=== PATIENT | male | born 1990 | race Caucasian/White ===

== ENCOUNTER 2019-07-17 19:23 | Emergency (ER) | payer SELFPAY ==
[2019-07-17 20:42] LABS: BLOOD UREA NITROGEN,BUN 18 mg/dL (7.0-18.0); CARBON DIOXIDE,CO2 22.3 mmol/L (21.0-32.0); CHLORIDE,CL 97 mmol/L (98-107); GLUCOSE RANDOM 98 mg/dL (74-106); POTASSIUM,K 4.6 mmol/L (3.5-5.1); SODIUM,NA 135 mmol/L (136-148)
[2019-07-17] MEDS ORDERED: Sodium Chloride 0.9% 1,000 ML IV ONE (21:26)
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
[2019-07-17] MEDS ORDERED: LORazepam 2 MG/ML SDV IVPUSH ONE (22:46)
[2019-07-17] MEDS ORDERED: LORazepam 1 MG Tab PO STA (22:49)
== END 2019-07-17 23:40 | disposition other institution (70) ==
LOC: MW.ED 19:23
DX: N17.9 Acute kidney failure, unspecified (principal); R40.4 Transient alteration of awareness; R74.8 Abnormal levels of other serum enzymes
CPT/HCPCS: 36415; 80053; 80307; 84484; 85027; 85610; 93005; 99285; A9270; J7030

== ENCOUNTER 2020-02-22 11:49 | Emergency (ER) | payer MEDICAID, OTHER ==
--- NOTE | 2020-02-22 13:38 | CR ---
HISTORY: Left lateral foot pain. TECHNIQUE: Three views of the left foot. COMPARISON: No prior. FINDINGS: No acute fracture or malalignment. Joint spaces are maintained. No radiopaque foreign body or soft tissue gas. IMPRESSION: No acute fracture or malalignment. Dictated by James Allan MD @ 02/22/2020 1:37:38 PM Dictated by: James Allan MD @ 02/22/2020 13:37:42 (Electronically Signed)
[2020-02-22] MEDS ORDERED: Ketorolac 60 MG/2 ML SDV IM ONE (13:53)
--- NOTE | 2020-02-22 13:53 | EDM.PDOC ---
ED HPI GENERAL MEDICAL PROBLEM - General Chief Complaint: Lower Extremity Injury/Pain Stated Complaint: INJURY TO LT FOOT Time Seen by Provider: 02/22/20 12:02 Source of Information: Reports: Patient History Limitations: Reports: No Limitations - History of Present Illness INITIAL COMMENTS - FREE TEXT/NARRATIVE: Presents reporting a foot impact injury 2 days ago. He states that he stepped off about a 2 foot step with his left foot. He may have misjudged the depth. He has persistent lateral foot pain with weightbearing. left foot Pain Score (Numeric/FACES): 8 - Related Data Allergies Allergy/AdvReac Type Severity Reaction Status Date / Time No Known Allergies Allergy Verified 02/22/20 12:41 Home Meds: Home Meds . [No Known Home Meds] 07/17/19 [History] Past Medical History - Past Health History Medical/Surgical History: Denies Medical/Surgical History HEENT History: Reports: None Cardiovascular History: Reports: None Respiratory History: Reports: None Gastrointestinal History: Reports: None Genitourinary History: Reports: None Musculoskeletal History: Reports: None Neurological History: Reports: None Psychiatric History: Reports: None Endocrine/Metabolic History: Reports: None Hematologic History: Reports: None Immunologic History: Reports: None Oncologic (Cancer) History: Reports: None Dermatologic History: Reports: None - Infectious Disease History Infectious Disease History: Reports: None - Past Surgical History Head Surgeries/Procedures: Reports: None HEENT Surgical History: Reports: None Cardiovascular Surgical History: Reports: None Respiratory Surgical History: Reports: None GI Surgical History: Reports: None Male Surgical History: Reports: None Endocrine Surgical History: Reports: None Neurological Surgical History: Reports: None Musculoskeletal Surgical History: Reports: None Oncologic Surgical History: Reports: None Dermatological Surgical History: Reports: None Social & Family History - Family History Family Medical History: Unobtainable - Tobacco Use Packs/Tins Daily: 0.5 - Recreational Drug Use Recreational Drug Use: No Review of Systems - Review of Systems Review Of Systems: Comprehensive ROS is negative, except as noted in HPI. ED EXAM, GENERAL - Physical Exam Exam: See Below Exam Limited By: No Limitations General Appearance: Alert, No Apparent Distress Ears: Normal External Exam Nose: Normal Inspection Throat/Mouth: Normal Inspection Head: Atraumatic, Normocephalic Neck: Normal Inspection Respiratory/Chest: No Respiratory Distress, Lungs Clear, Normal Breath Sounds Back Exam: Normal Inspection Extremities: Other (Left foot with mild swelling. Tenderness lateral foot. No erythema, ecchymosis, deformity or crepitus.) Course - Vital Signs Last Recorded V/S: Last Vital Signs Temp 36.4 C 02/22/20 12:38 Pulse 99 02/22/20 12:38 Resp 16 02/22/20 12:38 BP 128/89 02/22/20 12:38 Pulse Ox 96 02/22/20 12:38 Departure - Departure Time of Disposition: 13:55 Disposition: Home, Self-Care 01 Condition: Good Clinical Impression: Foot sprain Qualifiers: Encounter type: initial encounter Laterality: left Qualified Code(s): S93.602A - Unspecified sprain of left foot, initial encounter - Discharge Information Referrals: PCP,None [Primary Care Provider] - [facility] [Outside] [facility] [Outside] Additional Instructions: The following information is given to patients seen in the emergency department who are being discharged to home. This information is to outline your options for follow-up care. We provide all patients seen in our emergency department with a follow-up referral. The need for follow-up, as well as the timing and circumstances, are variable depending upon the specifics of your emergency department visit. If you don't have a primary care physician on staff, we will provide you with a referral. We always advise you to contact your personal physician following an emergency department visit to inform them of the circumstance of the visit and for follow-up with them and/or the need for any referrals to a consulting specialist. The emergency department will also refer you to a specialist when appropriate. This referral assures that you have the opportunity for follow-up care with a specialist. All of these measure are taken in an effort to provide you with optimal care, which includes your follow-up. Under all circumstances we always encourage you to contact your private physician who remains a resource for coordinating your care. When calling for follow-up care, please make the office aware that this follow-up is from your recent emergency room visit. If for any reason you are refused follow-up, please contact the [facility] Emergency Department at and asked to speak to the emergency department charge nurse. 1. César wrap, elevate left foot. 2. Ibuprofen 2-3 tabs every 6 to 8 hours as needed for pain 3. Follow up in primary care. Sepsis Event Note (ED) - Evaluation Sepsis Screening Result: No Definite Risk - Focused Exam Vital Signs: Vital Signs Temp Pulse Resp BP Pulse Ox 02/22/20 12:38 36.4 C 99 16 128/89 96
== END 2020-02-22 14:33 | disposition home or self-care (01) ==
LOC: MW.ED 11:49
DX: S93.602A Unspecified sprain of left foot, initial encounter (principal); F17.210 Nicotine dependence, cigarettes, uncomplicated; X50.9XXA Other and unspecified overexertion or strenuous movements or postures, initial encounter
CPT/HCPCS: 73630; 96372; 99283; J1885

== ENCOUNTER 2020-06-12 20:43 | Emergency (ER) | payer MEDICAID, OTHER ==
--- NOTE | 2020-06-12 21:21 | EDM.PDOC ---
ED HPI GENERAL MEDICAL PROBLEM - General Chief Complaint: ENT Problem Stated Complaint: BACK TOOTH PAIN Time Seen by Provider: 06/12/20 20:50 Source of Information: Reports: Patient History Limitations: Reports: No Limitations - History of Present Illness INITIAL COMMENTS - FREE TEXT/NARRATIVE: HISTORY AND PHYSICAL: History of present illness: Patient is a 30-year-old male who presents to the emergency room with complaints of right posterior molar dental pain. He states pain is an ongoing for 2 days but worse within the last 1 hour. Patient is tearful and feels like his "wisdom tooth is coming through". He has no difficulty with speech, swallowing or sore throat. Patient denies any fever, chills, headache, change in vision, syncope or near syncope. Denies any chest pain, back pain, shortness of breath or cough. Denies any abdominal pain, nausea, vomiting, diarrhea, constipation or dysuria. Has not noted any blood in urine or stool. Patient has been eating and drinking appropriately. Review of systems: As per history of present illness and below otherwise all systems reviewed and negative. Past medical history: As per history of present illness and as reviewed below otherwise noncontributory. Surgical history: As per history of present illness and as reviewed below otherwise noncontributory. Social history: See social history for further information Family history: As per history of present illness and as reviewed below otherwise noncontributory. Physical exam: General: Well developed and well nourished. Alert and orientated x 3. Nontoxic i n appearance and in no acute distress. Vital signs are stable and have been reviewed by me. Nursing notes were reviewed. HEENT: Atraumatic, normocephalic, pupils equal and reactive bilaterally, negat travis for conjunctival pallor or scleral icterus, mucous membranes moist, mild redness and tenderness to the posterior molar, no tenderness to the floor or roof of the mouth. TMs normal bilaterally, throat clear, neck supple, nontender, trachea midline. No drooling or trismus noted. No meningeal signs. No hot potato voice noted. Lungs: Clear to auscultation bilaterally. No wheezes, rales, or rhonchi. Chest nontender. Normal work of breathing, no accessory muscles used. Heart: S1S2, regular rate and rhythm without overt murmur, gallops, or rubs. No JVD. No peripheral edema Skin: Intact, warm, dry. No lesions or rashes noted. Hematologic: No petechiae or purpra. Mucosa appropriate color and normal nail bed color and refill. Extremities: Atraumatic, moves all extremities per self without difficulty or deficits, negative for cords or calf pain. Neurovascular unremarkable. Neuro: Awake, alert, oriented. Cranial nerves II through XII unremarkable. Cerebellum unremarkable. Motor and sensory unremarkable throughout. Exam nonfocal. Psychiatric: Mood and affect are appropriate. Normal thought process. Answering questions appropriately. Notes: *This patient was seen and evaluated during the 2019 SARS-CoV-2 novel coronavirus pandemic period. Community viral transmission is ongoing at time of this encounter and the emergency department is operating under pandemic response procedures. I do not see a clear abscess but will place him on antibiotics due to the tenderness along the gum line. I have talked with the patient about today's findings, in addition to providing specific details for plan of care. Reassessment at the time of disposition demonstrates that the patient is in no acute distress. The patient is stable for discharge, counseling was provided and we discussed in great detail signs and symptoms that would prompt them to return to the Emergency Department. Medication, follow up and supportive care measures were reviewed and discussed. Voices understanding and is agreeable to plan of care. Denies any further questions or concerns at this time. Diagnostics: None Therapeutics: Clindamycin, [place], dental balls Prescription: Clindamycin, Tylenol 3 Impression: Dental pain Plan: 1. Please take the antibiotic as prescribed. 2. Tylenol and/or ibuprofen as needed for pain management. "Tooth Balls" have been given to you; apply along the gumline every 2-3 hours as needed. Do not swallow these; external use only. 3. Follow-up with a dentist for definitive care. Return to the ED as needed and as discussed. Definitive disposition and diagnosis as appropriate pending reevaluation and review of above. R bottom teeth Pain Score (Numeric/FACES): 10 - Related Data Allergies Allergy/AdvReac Type Severity Reaction Status Date / Time amoxicillin Allergy Hives Verified 06/12/20 21:22 Home Meds: Home Meds Acetaminophen/Codeine [Tylenol with Codeine No.3 300MG/30MG] 1 tab PO Q4H PRN #20 tab 06/12/20 [Rx] Clindamycin HCl 300 mg PO TID 7 Days #21 capsule 06/12/20 [Rx] Past Medical History - Past Health History Medical/Surgical History: Denies Medical/Surgical History HEENT History: Reports: None Cardiovascular History: Reports: None Respiratory History: Reports: None Gastrointestinal History: Reports: None Genitourinary History: Reports: None Musculoskeletal History: Reports: None Neurological History: Reports: None Psychiatric History: Reports: None Endocrine/Metabolic History: Reports: None Hematologic History: Reports: None Immunologic History: Reports: None Oncologic (Cancer) History: Reports: None Dermatologic History: Reports: None - Infectious Disease History Infectious Disease History: Reports: None - Past Surgical History Head Surgeries/Procedures: Reports: None HEENT Surgical History: Reports: None Cardiovascular Surgical History: Reports: None Respiratory Surgical History: Reports: None GI Surgical History: Reports: None Male Surgical History: Reports: None Endocrine Surgical History: Reports: None Neurological Surgical History: Reports: None Musculoskeletal Surgical History: Reports: None Oncologic Surgical History: Reports: None Dermatological Surgical History: Reports: None Social & Family History - Family History Family Medical History: Unobtainable ED ROS ENT - Review of Systems Review Of Systems: Comprehensive ROS is negative, except as noted in HPI. ED EXAM, ENT - Physical Exam Exam: See Below (See dictation) Course - Vital Signs Last Recorded V/S: Last Vital Signs Temp 98.5 F 06/12/20 21:22 Pulse 95 06/12/20 21:22 Resp 18 06/12/20 21:22 BP 143/86 H 06/12/20 21:22 Pulse Ox 97 06/12/20 21:22 - Orders/Labs/Meds Meds: Medications Discontinued Medications Generic Name Dose Route Start Last Admin Trade Name Jn PRN Reason Stop Dose Admin Hydrocodone Bitart/Acetaminophen 1 tab 06/12/20 21:31 Acetaminophen/Hydrocodone 325-5 Mg Tab PO 06/12/20 21:32 ONETIME ONE Benzocaine 2 each 06/12/20 21:34 Benzocaine 20% Topical [place] Ud MUCMEM 06/12/20 21:35 ONETIME ONE Clindamycin HCl 300 mg 06/12/20 21:31 Clindamycin Hcl 150 Mg Cap PO 06/12/20 21:32 ONETIME ONE Lidocaine HCl 15 ml 06/12/20 21:34 Lidocaine 2% Viscous Solution 15 Ml Cup PO 06/12/20 21:35 ONETIME ONE Departure - Departure Time of Disposition: 21:35 Disposition: Home, Self-Care 01 Clinical Impression: Dentalgia - Discharge Information Prescriptions: Clindamycin HCl 300 mg PO TID 7 Days #21 capsule Acetaminophen/Codeine [Tylenol with Codeine No.3 300MG/30MG] 1 tab PO Q4H PRN #20 tab PRN Reason: Pain Instructions: Dental Abscess, [id number] Referrals: PCP,None [Primary Care Provider] - Forms: ED Department Discharge Additional Instructions: The following information is given to patients seen in the emergency department who are being discharged to home. This information is to outline your options for follow-up care. We provide all patients seen in our emergency department with a follow-up referral. The need for follow-up, as well as the timing and circumstances, are variable depending upon the specifics of your emergency department visit. If you don't have a primary care physician on staff, we will provide you with a referral. We always advise you to contact your personal physician following an emergency department visit to inform them of the circumstance of the visit and for follow-up with them and/or the need for any referrals to a consulting specialist. The emergency department will also refer you to a specialist when appropriate. This referral assures that you have the opportunity for follow-up care with a specialist. All of these measure are taken in an effort to provide you with optimal care, which includes your follow-up. Under all circumstances we always encourage you to contact your private physician who remains a resource for coordinating your care. When calling for follow-up care, please make the office aware that this follow-up is from your recent emergency room visit. If for any reason you are refused follow-up, please contact the [facility] Emergency Department at and asked to speak to the emergency department charge nurse. [facility] [address] [place] [id number] [address] Thank you for choosing the [facility] emergency department in [place] for your medical needs today. It was a pleasure caring for you. Today you were seen in the emergency department for toe pain. 1. Please take the antibiotic as prescribed. 2. Tylenol and/or ibuprofen as needed for pain management. "Tooth Balls" have be en given to you; apply along the gumline every 2-3 hours as needed. Do not swallow these; external use only. 3. Follow-up with a dentist for definitive care. Return to the ED as needed and as discussed. Sepsis Event Note (ED) - Focused Exam Vital Signs: Vital Signs Temp Pulse Resp BP Pulse Ox 06/12/20 21:22 98.5 F 95 18 143/86 H 97
[2020-06-12] MEDS ORDERED: Acetaminophen/HYDROcodone 325-5 MG Tab PO ONE (21:31)
[2020-06-12] MEDS ORDERED: Clindamycin HCl 150 MG Cap PO ONE (21:31)
[2020-06-12] MEDS ORDERED: Benzocaine 20% Topical Spray UD MUCMEM ONE (21:34)
[2020-06-12] MEDS ORDERED: Lidocaine 2% Viscous Solution 15 ML Cup PO ONE (21:34)
== END 2020-06-12 21:47 | disposition home or self-care (01) ==
LOC: MW.ED 20:43
DX: K08.89 Other specified disorders of teeth and supporting structures (principal); Z88.1 Allergy status to other antibiotic agents
CPT/HCPCS: 99282; A9270

== ENCOUNTER 2020-08-13 01:30 | Emergency (ER) | payer MEDICAID ==
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
[2020-08-13] MEDS ORDERED: Diphtheria,Pertussis(Acell),Tetanus Vaccine 0.5 ML Syringe IM ONE (01:38)
[2020-08-13] MEDS ORDERED: Acetaminophen 325 MG Tab PO ONE (01:38)
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
[2020-08-13] MEDS ORDERED: Octyl 2-Cyanoacrylate 1 APPLIC TUBE TOP ONE (03:45)
[2020-08-13] MEDS ORDERED: Bacitracin Oint 1 GM U/D Packet TOP ONE (07:42)
[2020-08-13] MEDS ORDERED: Bacitracin Oint 1 GM U/D Packet ONE (07:43)
== END 2020-08-13 07:55 | disposition home or self-care (01) ==
LOC: MW.ED 01:30
DX: S06.0X9A Concussion with loss of consciousness of unspecified duration, initial encounter (principal); S02.2XXA Fracture of nasal bones, initial encounter for closed fracture; S01.81XA Laceration without foreign body of other part of head, initial encounter; F10.129 Alcohol abuse with intoxication, unspecified; Z88.0 Allergy status to penicillin; Z23 Encounter for immunization; Y04.2XXA Assault by strike against or bumped into by another person, initial encounter
CPT/HCPCS: 12011; 70450; 70486; 72125; 90471; 90715; 99284; A9270; 99283

== ENCOUNTER 2021-05-10 17:31 | Emergency (ER) | payer MEDICAID ==
[2021-05-10 19:33] LABS: CORONAVIRUS COVID-19 NAA NEGATIVE (NEGATIVE); INFLUENZA A NAA NEGATIVE (NEGATIVE); INFLUENZA B NAA NEGATIVE (NEGATIVE)
[2021-05-10] MEDS ORDERED: Ondansetron 4 MG Tab.DIS PO ONE (20:54)
[2021-05-10] MEDS ORDERED: Ibuprofen 600 MG Tab PO ONE (20:54)
== END 2021-05-10 21:30 | disposition home or self-care (01) ==
LOC: MW.ED 17:31
DX: J10.1 Influenza due to other identified influenza virus with other respiratory manifestations (principal); Z88.0 Allergy status to penicillin; Z20.822 Contact with and (suspected) exposure to COVID-19
CPT/HCPCS: 0240U; 99283; A9270-GY

== ENCOUNTER 2022-08-03 12:06 | Emergency (ER) | payer SELFPAY ==
[2022-08-03] MEDS ORDERED: Sodium Chloride 0.9% 10 ML Syringe FLUSH PRN (12:21)
[2022-08-03] MEDS ORDERED: Sodium Chloride 0.9% 2.5 ML Syringe FLUSH PRN (12:21)
[2022-08-03] MEDS ORDERED: Sodium Chloride 0.9% 1,000 ML IV STA ×3 (12:22→14:19)
[2022-08-03] MEDS ORDERED: Ondansetron 4 MG/2 ML SDV IVPUSH STA (12:22)
[2022-08-03] MEDS ORDERED: LORazepam 2 MG/ML SDV IVPUSH STA ×3 (12:42→14:19)
[2022-08-03 12:48] LABS: BASOPHILS PERCENT AUTO 0.4 % (0.0-1.5); EOSINOPHILS ABSOLUTE AUTO 0.2 K/uL (0.0-0.7); HEMATOCRIT 44.5 % (38.0-50.0); HEMOGLOBIN 15.3 g/dL (13.0-17.0); LYMPHOCYTES ABSOLUTE AUTO 2.1 K/uL (0.6-2.4); LYMPHOCYTES PERCENT AUTO 46.9 % (16.0-40.0); MEAN CORPUSCULAR HEMOGLOBIN 31.1 pg (27.0-32.0); MEAN CORPUSCULAR HGB CONC 34.4 g/dL (31.0-37.0); MEAN CORPUSCULAR VOLUME 90.4 fL (80.0-98.0); MONOCYTES ABSOLUTE AUTO 0.3 K/uL (0.0-0.8); MONOCYTES PERCENT AUTO 7.2 % (0.0-15.0); NEUTROPHILS ABSOLUTE AUTO 1.8 K/uL (1.4-5.7); NEUTROPHILS PERCENT AUTO 40.5 % (48.0-80.0); RED BLOOD CELL COUNT 4.92 M/uL (4.50-5.90); WHITE BLOOD CELL COUNT,WBC 4.56 K/uL (4.0-11.0)
[2022-08-03 13:05] LABS: PLATELET COUNT,PLT 44 K/uL (150-400)
[2022-08-03 13:21] LABS: MAGNESIUM 1.7 mg/dL (1.8-2.4)
[2022-08-03] MEDS ORDERED: Magnesium Sulfate/Water 2 GM in Premix Bag 1 BAG IV STA (13:28)
[2022-08-03 13:30] LABS: A/G RATIO 0.7 (0.9-1.6); ALBUMIN 3.6 g/dL (3.4-5.0); BILIRUBIN TOTAL 3.5 mg/dL (0.2-1.0); CALCIUM 8.2 mg/dL (8.5-10.1); CARBON DIOXIDE,CO2 23.6 mmol/L (21.0-32.0); CREATININE 0.8 mg/dL (0.8-1.3); EST CRCL DRUG DOSING (CG) 156.98 mL/min; POTASSIUM,K 3.7 mmol/L (3.5-5.1); PROTEIN TOTAL,TP 8.6 g/dL (6.4-8.2)
[2022-08-03 13:36] LABS: CORONAVIRUS COVID-19 NAA NEGATIVE (NEGATIVE); INFLUENZA A NAA NEGATIVE (NEGATIVE); INFLUENZA B NAA NEGATIVE (NEGATIVE)
[2022-08-03 13:43] LABS: APPEARANCE,URINE CLEAR; BILIRUBIN,URINE NEGATIVE (NEGATIVE); COLOR,URINE YELLOW; GLUCOSE,URINE NEGATIVE (NEGATIVE); KETONES,URINE TRACE mg/dL (NEGATIVE); LEUKOCYTE ESTERASE,URINE NEGATIVE (NEGATIVE); NITRITE,URINE NEGATIVE (NEGATIVE); OCCULT BLOOD,URINE NEGATIVE (NEGATIVE); PH,URINE 6.5 (5.0-8.0); PROTEIN,URINE NEGATIVE (NEGATIVE)
[2022-08-03 13:52] LABS: AMPHETAMINES SCREEN, URINE NEGATIVE (CUTOFF=500); BARBITURATE SCREEN,URINE NEGATIVE (CUTOFF=200); BENZODIAZEPINES SCREEN,URINE NEGATIVE (CUTOFF=150); BUPRENORPHINE SCREEN,URINE NEGATIVE (CUTOFF=10); METHADONE SCREEN, URINE NEGATIVE (CUTOFF=200); METHAMPHETAMINES SCREEN, URINE NEGATIVE (CUTOFF=500); OXYCODONE SCREEN,URINE NEGATIVE (CUT0FF=100); PCP SCREEN,URINE NEGATIVE (CUTOFF=25); PROPOXYPHENE SCREEN,URINE NEGATIVE (CUTOFF=300); THC SCREEN,URINE 20 NG/ML NEGATIVE (CUTOFF=50)
[2022-08-03] MEDS ORDERED: Iopamidol 755 MG/ML 500 ML Multipack Bottle IVPUSH ONE (13:55)
[2022-08-03] MEDS ORDERED: Folic Acid 1 MG/0.2 ML UD Syringe IV STA ×2 (14:20→14:26)
[2022-08-03] MEDS ORDERED: Thiamine 100 MG in Sodium Chloride 0.9% 100 ML IV STA (14:20)
[2022-08-03 14:21] LABS: INR 1.05 (0.86-1.11)
[2022-08-03] MEDS ORDERED: Thiamine 200 MG/2 ML MDV IVPUSH ONE (14:30)
== END 2022-08-03 16:27 | disposition home or self-care (01) ==
LOC: MW.ED 12:06
DX: K70.9 Alcoholic liver disease, unspecified (principal); F10.920 Alcohol use, unspecified with intoxication, uncomplicated; D69.6 Thrombocytopenia, unspecified; E83.42 Hypomagnesemia; R74.8 Abnormal levels of other serum enzymes; Z88.0 Allergy status to penicillin; Z20.822 Contact with and (suspected) exposure to COVID-19; Y90.8 Blood alcohol level of 240 mg/100 ml or more
CPT/HCPCS: 0240U; 36415; 74177; 80053; 80305; 80307; 81003; 83605; 83690; 83735; 85025; 85610; 93005; 96361; 96365; 96375; 96376; 99284; J2060; J2405; J3411; J3475; J3490; J7030; Q9967; 93010; 99285

== ENCOUNTER 2022-08-06 08:38 | Emergency (ER) | payer SELFPAY | END 2022-08-06 10:48 | disposition home or self-care (01) | LOC: MW.ED 08:38 | DX: G47.00 Insomnia, unspecified (principal); Z88.0 Allergy status to penicillin | CPT/HCPCS: 99283 ==

== ENCOUNTER 2023-06-15 05:18 | Inpatient (IN) | payer MEDICAID ==
[2023-06-15] MEDS: Sodium Chloride 0.9% 2.5 ML Syringe FLUSH PRN (05:42)
[2023-06-15] MEDS: Sodium Chloride 0.9% 10 ML Syringe FLUSH PRN (05:43)
[2023-06-15 05:59] LABS: BASOPHILS PERCENT AUTO 1.3 % (0.0-1.0); HEMATOCRIT 37.9 % (42.0-52.0); IMMATURE GRAN ABSOLUTE AUTO 0.03 K/uL (0.00-0.05); IMMATURE GRAN PERCENT AUTO 0.4 % (0.0-0.4); LYMPHOCYTES ABSOLUTE AUTO 0.63 K/uL (1.00-4.80); MEAN CORPUSCULAR HEMOGLOBIN 34.1 pg (28.0-32.0); MEAN CORPUSCULAR HGB CONC 34.3 g/dL (32.0-36.0); MEAN CORPUSCULAR VOLUME 99.5 fL (83.0-99.0); MEAN PLATELET VOLUME 12.6 fL (9.4-12.4); MONOCYTES ABSOLUTE AUTO 0.62 K/uL (0.00-0.80); MONOCYTES PERCENT AUTO 7.9 % (0.0-8.0); NEUTROPHILS PERCENT AUTO 82.4 % (41.0-71.0); RED BLOOD CELL COUNT 3.81 M/uL (4.52-5.90); WHITE BLOOD CELL COUNT,WBC 7.88 K/uL (3.9-11.3)
[2023-06-15] MEDS: Dextrose 5%-Lactated Ringers 1,000 ML IV SCH ×2 (06:09→17:07)
[2023-06-15] MEDS: Thiamine 200 MG/2 ML MDV IVPUSH STA (06:09)
[2023-06-15 06:30] LABS: INR 1.27 (0.86-1.11); PTT,PARTIAL THROMBOPLSTIN TIME 24.4 SEC (23.9-30.7)
[2023-06-15 06:36] LABS: PLATELET COUNT,PLT 45 K/uL (150-400)
[2023-06-15 06:37] LABS: A/G RATIO 0.9 (0.9-1.6); ALBUMIN 4.1 g/dL (3.4-5.0); BILIRUBIN TOTAL 7.5 mg/dL (0.2-1.0); CALCIUM 9.7 mg/dL (8.5-10.1); CARBON DIOXIDE,CO2 17.9 mmol/L (21.0-32.0); CREATININE 1.1 mg/dL (0.8-1.3); EST CRCL DRUG DOSING (CG) 113.13 mL/min; POTASSIUM,K 3.7 mmol/L (3.5-5.1); PROTEIN TOTAL,TP 8.6 g/dL (6.4-8.2)
[2023-06-15 06:38] LABS: COLOR,URINE ORANGE; GLUCOSE,URINE NEGATIVE (NEGATIVE); KETONES,URINE 40 mg/dL (NEGATIVE); LEUKOCYTE ESTERASE,URINE NEGATIVE (NEGATIVE); NITRITE,URINE POSITIVE (NEGATIVE); OCCULT BLOOD,URINE SMALL (NEGATIVE); PROTEIN,URINE TRACE mg/dL (NEGATIVE)
[2023-06-15 06:41] LABS: APPEARANCE,URINE HAZY; BILIRUBIN,URINE MODERATE (NEGATIVE)
[2023-06-15 06:45] LABS: BACTERIA,URINE FEW (NEGATIVE); EPITHELIAL CELLS,URINE NOT SEEN (NONE-FEW); HYALINE CASTS,URINE 0-2 (0-2/LPF); MUCUS,URINE LIGHT (NONE-MOD); WBC,URINE 0-2 (0-5/HPF)
[2023-06-15 06:48] LABS: AMPHETAMINES SCREEN, URINE NEGATIVE (CUTOFF=500); BARBITURATE SCREEN,URINE NEGATIVE (CUTOFF=200); BENZODIAZEPINES SCREEN,URINE NEGATIVE (CUTOFF=150); BUPRENORPHINE SCREEN,URINE NEGATIVE (CUTOFF=10); METHADONE SCREEN, URINE NEGATIVE (CUTOFF=200); METHAMPHETAMINES SCREEN, URINE NEGATIVE (CUTOFF=500); OXYCODONE SCREEN,URINE NEGATIVE (CUT0FF=100); PCP SCREEN,URINE NEGATIVE (CUTOFF=25); THC SCREEN,URINE 20 NG/ML NEGATIVE (CUTOFF=50)
[2023-06-15] MEDS: Sodium Chloride 0.9% 1,000 ML IV ONE (07:21)
[2023-06-15] MEDS: PHENobarbitaL sodium 130 MG in Sodium Chloride 0.9% 100 ML IV ONE (07:26)
[2023-06-15] MEDS: Lactulose Soln 10 GM/15 ML 15 ML UD Cup PO ONE (08:40)
[2023-06-15] MEDS: Iopamidol 755 MG/ML 500 ML Multipack Bottle IVPUSH ONE (08:59)
[2023-06-15] MEDS ORDERED: Thiamine 100 MG in Sodium Chloride 0.9% 100 ML IV SCH (09:00)
[2023-06-15] MEDS: Thiamine 400 MG in Sodium Chloride 0.9% 250 ML IV STA (11:04)
[2023-06-15] MEDS ORDERED: Sodium Chloride 0.9% 2.5 ML Syringe FLUSH PRN (12:51)
[2023-06-15] MEDS ORDERED: Sodium Chloride 0.9% 10 ML Syringe FLUSH PRN (12:51)
[2023-06-15] MEDS: Pantoprazole 40 MG in Sodium Chloride 0.9% 10 ML IVPUSH ONE (13:11)
[2023-06-15] MEDS: LORazepam 2 MG/ML SDV IV PRN (13:12)
[2023-06-15] MEDS: Nicotine 14 MG/24 Hr Patch TRDERM SCH (13:59)
[2023-06-15] MEDS: Thiamine 500 MG in Sodium Chloride 0.9% 100 ML IV SCH (17:07)
[2023-06-15] MEDS: Lactulose Soln 10 GM/15 ML 15 ML UD Cup PO SCH (20:03)
[2023-06-15] MEDS: Folic Acid 1 MG Tab PO SCH (20:03)
[2023-06-15] MEDS ORDERED: Acetaminophen 325 MG Tab PO PRN (20:39)
[2023-06-15] MEDS: Acetaminophen 325 MG Tab PO PRN (21:04)
[2023-06-15] MEDS: traMADol 50 MG Tab PO ONE (22:58)
[2023-06-15] MEDS ORDERED: traMADol 50 MG Tab PO PRN (23:05)
[2023-06-15] MEDS: traMADol 50 MG Tab PO SCH (23:09)
[2023-06-16 06:16] LABS: BASOPHILS ABSOLUTE AUTO 0.05 K/uL (0.00-0.20); BASOPHILS PERCENT AUTO 1.3 % (0.0-1.0); EOSINOPHILS ABSOLUTE AUTO 0.12 K/uL (0.00-0.45); EOSINOPHILS PERCENT AUTO 3.2 % (0.0-6.0); HEMATOCRIT 33.6 % (42.0-52.0); HEMOGLOBIN 11.9 g/dL (14.0-18.0); LYMPHOCYTES ABSOLUTE AUTO 1.23 K/uL (1.00-4.80); LYMPHOCYTES PERCENT AUTO 32.5 % (24.0-44.0); MEAN CORPUSCULAR HEMOGLOBIN 34.5 pg (28.0-32.0); MEAN CORPUSCULAR HGB CONC 35.4 g/dL (32.0-36.0); MEAN CORPUSCULAR VOLUME 97.4 fL (83.0-99.0); MEAN PLATELET VOLUME 12.4 fL (9.4-12.4); MONOCYTES PERCENT AUTO 7.9 % (0.0-8.0); NEUTROPHILS ABSOLUTE AUTO 2.09 K/uL (1.80-7.70); NEUTROPHILS PERCENT AUTO 55.1 % (41.0-71.0); RED BLOOD CELL COUNT 3.45 M/uL (4.52-5.90); WHITE BLOOD CELL COUNT,WBC 3.79 K/uL (3.9-11.3)
[2023-06-16 06:26] LABS: INR 1.27 (0.86-1.11)
[2023-06-16 06:46] LABS: A/G RATIO 0.8 (0.9-1.6); BILIRUBIN TOTAL 5.5 mg/dL (0.2-1.0); CALCIUM 8.6 mg/dL (8.5-10.1); CARBON DIOXIDE,CO2 24.7 mmol/L (21.0-32.0); CREATININE 0.9 mg/dL (0.8-1.3); EST CRCL DRUG DOSING (CG) 138.27 mL/min; MAGNESIUM 1.1 mg/dL (1.8-2.4); PHOSPHORUS 2.8 mg/dL (2.6-4.7); POTASSIUM,K 3.2 mmol/L (3.5-5.1); PROTEIN TOTAL,TP 6.9 g/dL (6.4-8.2)
[2023-06-16 06:55] LABS: PLATELET COUNT,PLT 42 K/uL (150-400)
[2023-06-16] MEDS: Pantoprazole 40 MG Tab.CR PO SCH (08:09)
[2023-06-16] MEDS: Magnesium Sulfate/Water 4 GM in Premix Bag 1 BAG IV ONE (08:24)
[2023-06-16] MEDS ORDERED: Potassium Chloride 20 MEQ Tab.ER PO SCH (08:30)
[2023-06-16] MEDS ORDERED: Potassium Chloride 10 MEQ in Premix Bag 4 BAG IV ONE (08:33)
[2023-06-16] MEDS: Potassium Chloride 10 MEQ in Premix Bag 1 BAG IV SCH (09:37)
[2023-06-17 07:08] LABS: BASOPHILS ABSOLUTE AUTO 0.06 K/uL (0.00-0.20); BASOPHILS PERCENT AUTO 1.5 % (0.0-1.0); EOSINOPHILS ABSOLUTE AUTO 0.19 K/uL (0.00-0.45); EOSINOPHILS PERCENT AUTO 4.7 % (0.0-6.0); HEMATOCRIT 36.2 % (42.0-52.0); HEMOGLOBIN 12.8 g/dL (14.0-18.0); IMMATURE GRAN ABSOLUTE AUTO 0.01 K/uL (0.00-0.05); IMMATURE GRAN PERCENT AUTO 0.2 % (0.0-0.4); LYMPHOCYTES ABSOLUTE AUTO 0.66 K/uL (1.00-4.80); LYMPHOCYTES PERCENT AUTO 16.3 % (24.0-44.0); MEAN CORPUSCULAR HEMOGLOBIN 34.5 pg (28.0-32.0); MEAN CORPUSCULAR HGB CONC 35.4 g/dL (32.0-36.0); MEAN CORPUSCULAR VOLUME 97.6 fL (83.0-99.0); MEAN PLATELET VOLUME 12.3 fL (9.4-12.4); MONOCYTES ABSOLUTE AUTO 0.24 K/uL (0.00-0.80); MONOCYTES PERCENT AUTO 5.9 % (0.0-8.0); NEUTROPHILS ABSOLUTE AUTO 2.89 K/uL (1.80-7.70); NEUTROPHILS PERCENT AUTO 71.4 % (41.0-71.0); PLATELET COUNT,PLT 44 K/uL (150-400); RED BLOOD CELL COUNT 3.71 M/uL (4.52-5.90); WHITE BLOOD CELL COUNT,WBC 4.05 K/uL (3.9-11.3)
[2023-06-17 07:19] LABS: INR 1.19 (0.86-1.11)
[2023-06-17 07:32] LABS: A/G RATIO 0.7 (0.9-1.6); CALCIUM 8.6 mg/dL (8.5-10.1); CARBON DIOXIDE,CO2 27.1 mmol/L (21.0-32.0); CREATININE 0.8 mg/dL (0.8-1.3); EST CRCL DRUG DOSING (CG) 155.55 mL/min; MAGNESIUM 1.4 mg/dL (1.8-2.4); PHOSPHORUS 3.4 mg/dL (2.6-4.7); POTASSIUM,K 3.6 mmol/L (3.5-5.1); PROTEIN TOTAL,TP 7.4 g/dL (6.4-8.2)
[2023-06-17] MEDS: Thiamine 200 MG/2 ML MDV IVPUSH SCH (08:01)
[2023-06-17] MEDS: Potassium Chloride 20 MEQ Tab.ER PO ONE (08:13)
[2023-06-17] MEDS: Magnesium Sulfate/Water 2 GM in Premix Bag 1 BAG IV ONE (08:13)
[2023-06-18 06:47] LABS: BASOPHILS ABSOLUTE AUTO 0.06 K/uL (0.00-0.20); BASOPHILS PERCENT AUTO 1.2 % (0.0-1.0); EOSINOPHILS ABSOLUTE AUTO 0.18 K/uL (0.00-0.45); EOSINOPHILS PERCENT AUTO 3.6 % (0.0-6.0); HEMATOCRIT 38.1 % (42.0-52.0); HEMOGLOBIN 13.5 g/dL (14.0-18.0); IMMATURE GRAN ABSOLUTE AUTO 0.01 K/uL (0.00-0.05); IMMATURE GRAN PERCENT AUTO 0.2 % (0.0-0.4); LYMPHOCYTES ABSOLUTE AUTO 0.81 K/uL (1.00-4.80); MEAN CORPUSCULAR HEMOGLOBIN 34.6 pg (28.0-32.0); MEAN CORPUSCULAR HGB CONC 35.4 g/dL (32.0-36.0); MEAN CORPUSCULAR VOLUME 97.7 fL (83.0-99.0); MEAN PLATELET VOLUME 13.2 fL (9.4-12.4); MONOCYTES ABSOLUTE AUTO 0.49 K/uL (0.00-0.80); MONOCYTES PERCENT AUTO 9.7 % (0.0-8.0); NEUTROPHILS ABSOLUTE AUTO 3.51 K/uL (1.80-7.70); NEUTROPHILS PERCENT AUTO 69.3 % (41.0-71.0); PLATELET COUNT,PLT 57 K/uL (150-400); WHITE BLOOD CELL COUNT,WBC 5.06 K/uL (3.9-11.3)
[2023-06-18 06:53] LABS: INR 1.18 (0.86-1.11)
[2023-06-18 07:02] LABS: A/G RATIO 0.7 (0.9-1.6); BILIRUBIN TOTAL 5.4 mg/dL (0.2-1.0); CALCIUM 9.6 mg/dL (8.5-10.1); CARBON DIOXIDE,CO2 26.7 mmol/L (21.0-32.0); CREATININE 0.8 mg/dL (0.8-1.3); EST CRCL DRUG DOSING (CG) 155.55 mL/min; MAGNESIUM 1.4 mg/dL (1.8-2.4); PHOSPHORUS 3.7 mg/dL (2.6-4.7); POTASSIUM,K 4.3 mmol/L (3.5-5.1); PROTEIN TOTAL,TP 7.6 g/dL (6.4-8.2)
[2023-06-18] MEDS: Magnesium Sulfate/Water 4 GM in Premix Bag 1 BAG IV ONE (08:07)
[2023-06-18 12:07] LABS: HAV AB IGM Negative (Negative); HBC IGM Negative (Negative); HEP B SURG AG Negative (Negative); HEP C AB BY CIA High Pos (Negative); HEP C AB BY CIA INDEX >11.00 IV
[2023-06-18] MEDS: Sodium Chloride 0.9% 1,000 ML IV SCH (13:46)
[2023-06-18] MEDS ORDERED: LORazepam 2 MG/ML Syringe IVPUSH PRN ×3 (15:30→20:20)
[2023-06-18] MEDS: LORazepam 2 MG/ML SDV IV SCH (20:24)
[2023-06-18] MEDS: Ondansetron 4 MG/2 ML SDV IVPUSH PRN (23:58)
[2023-06-19 06:02] LABS: BASOPHILS ABSOLUTE AUTO 0.06 K/uL (0.00-0.20); BASOPHILS PERCENT AUTO 1.3 % (0.0-1.0); EOSINOPHILS PERCENT AUTO 2.2 % (0.0-6.0); HEMATOCRIT 33.6 % (42.0-52.0); HEMOGLOBIN 11.7 g/dL (14.0-18.0); LYMPHOCYTES ABSOLUTE AUTO 1.02 K/uL (1.00-4.80); MEAN CORPUSCULAR HEMOGLOBIN 34.9 pg (28.0-32.0); MEAN CORPUSCULAR HGB CONC 34.8 g/dL (32.0-36.0); MEAN CORPUSCULAR VOLUME 100.3 fL (83.0-99.0); MEAN PLATELET VOLUME 12.6 fL (9.4-12.4); MONOCYTES ABSOLUTE AUTO 0.68 K/uL (0.00-0.80); MONOCYTES PERCENT AUTO 14.7 % (0.0-8.0); NEUTROPHILS ABSOLUTE AUTO 2.78 K/uL (1.80-7.70); NEUTROPHILS PERCENT AUTO 59.8 % (41.0-71.0); PLATELET COUNT,PLT 72 K/uL (150-400); RED BLOOD CELL COUNT 3.35 M/uL (4.52-5.90); WHITE BLOOD CELL COUNT,WBC 4.64 K/uL (3.9-11.3)
[2023-06-19 06:17] LABS: INR 1.2 (0.86-1.11)
[2023-06-19 07:01] LABS: A/G RATIO 0.7 (0.9-1.6); ALBUMIN 2.8 g/dL (3.4-5.0); BILIRUBIN TOTAL 4.7 mg/dL (0.2-1.0); CALCIUM 8.8 mg/dL (8.5-10.1); CREATININE 0.9 mg/dL (0.8-1.3); EST CRCL DRUG DOSING (CG) 138.27 mL/min; MAGNESIUM 1.6 mg/dL (1.8-2.4); PHOSPHORUS 3.8 mg/dL (2.6-4.7); POTASSIUM,K 3.9 mmol/L (3.5-5.1); PROTEIN TOTAL,TP 6.8 g/dL (6.4-8.2)
[2023-06-19] MEDS: Magnesium Sulfate/Water 4 GM in Premix Bag 1 BAG IV ONE (07:53)
[2023-06-19] MEDS: Thiamine 250 MG in Sodium Chloride 0.9% 100 ML IV SCH (10:15)
[2023-06-19] MEDS: LORazepam 2 MG/ML Syringe IVPUSH SCH (13:15)
[2023-06-19 14:07] LABS: HEP C QNT BY NAAT (IU/mL) Not Detected; HEP C QNT BY NAAT (log IU/mL) Not Detected log IU/mL; HEP C QNT BY NAAT INTERP Not Detected (Not Detected)
[2023-06-19] MEDS ORDERED: LORazepam 1 MG Tab PO PRN (15:39)
[2023-06-19] MEDS: QUEtiapine 100 MG Tab PO SCH (20:52)
[2023-06-20 05:40] LABS: BASOPHILS ABSOLUTE AUTO 0.05 K/uL (0.00-0.20); BASOPHILS PERCENT AUTO 1.3 % (0.0-1.0); EOSINOPHILS ABSOLUTE AUTO 0.14 K/uL (0.00-0.45); EOSINOPHILS PERCENT AUTO 3.7 % (0.0-6.0); HEMATOCRIT 34.9 % (42.0-52.0); HEMOGLOBIN 11.7 g/dL (14.0-18.0); IMMATURE GRAN ABSOLUTE AUTO 0.01 K/uL (0.00-0.05); IMMATURE GRAN PERCENT AUTO 0.3 % (0.0-0.4); LYMPHOCYTES ABSOLUTE AUTO 1.37 K/uL (1.00-4.80); LYMPHOCYTES PERCENT AUTO 36.4 % (24.0-44.0); MEAN CORPUSCULAR HGB CONC 33.5 g/dL (32.0-36.0); MEAN CORPUSCULAR VOLUME 101.5 fL (83.0-99.0); MEAN PLATELET VOLUME 11.6 fL (9.4-12.4); MONOCYTES ABSOLUTE AUTO 0.73 K/uL (0.00-0.80); MONOCYTES PERCENT AUTO 19.4 % (0.0-8.0); NEUTROPHILS ABSOLUTE AUTO 1.46 K/uL (1.80-7.70); NEUTROPHILS PERCENT AUTO 38.9 % (41.0-71.0); PLATELET COUNT,PLT 87 K/uL (150-400); RED BLOOD CELL COUNT 3.44 M/uL (4.52-5.90); WHITE BLOOD CELL COUNT,WBC 3.76 K/uL (3.9-11.3)
[2023-06-20 05:53] LABS: INR 1.23 (0.86-1.11)
[2023-06-20 06:07] LABS: A/G RATIO 0.7 (0.9-1.6); ALBUMIN 2.9 g/dL (3.4-5.0); CALCIUM 8.7 mg/dL (8.5-10.1); CARBON DIOXIDE,CO2 23.3 mmol/L (21.0-32.0); EST CRCL DRUG DOSING (CG) 124.44 mL/min; MAGNESIUM 1.8 mg/dL (1.8-2.4); PHOSPHORUS 3.9 mg/dL (2.6-4.7); POTASSIUM,K 3.7 mmol/L (3.5-5.1); PROTEIN TOTAL,TP 6.9 g/dL (6.4-8.2)
[2023-06-21 23:07] LABS: HCV QNT BY NAAT (IU/ML) Not Detected; HCV QNT BY NAAT (LOG IU/ML) Not Detected log IU/mL; HCV QNT BY NAAT INTERP Not Detected (Not Detected)
== END 2023-06-20 09:45 | disposition left against medical advice (07) | DRG 433 ==
LOC: MW.ED 05:18 → MW.ICU 12:49
PROVIDERS: ADMIT Family Medicine; ATTEND Family Medicine
DX: K70.30 Alcoholic cirrhosis of liver without ascites (principal); E80.6 Other disorders of bilirubin metabolism; F10.139 Alcohol abuse with withdrawal, unspecified; E51.2 Wernicke's encephalopathy; F10.221 Alcohol dependence with intoxication delirium; F10.232 Alcohol dependence with withdrawal with perceptual disturbance; F10.251 Alcohol dependence with alcohol-induced psychotic disorder with hallucinations; K76.82 Hepatic encephalopathy; F17.210 Nicotine dependence, cigarettes, uncomplicated; E11.9 Type 2 diabetes mellitus without complications; F41.9 Anxiety disorder, unspecified; F32.A Depression, unspecified; K70.10 Alcoholic hepatitis without ascites; B18.2 Chronic viral hepatitis C; E83.42 Hypomagnesemia; R74.01 Elevation of levels of liver transaminase levels; D69.59 Other secondary thrombocytopenia; K76.0 Fatty (change of) liver, not elsewhere classified; K82.8 Other specified diseases of gallbladder; Z88.0 Allergy status to penicillin; Z98.890 Other specified postprocedural states
CPT/HCPCS: 36415; 70450; 70496; 70498; 71045; 74177; 80053; 80305; 80307; 81001; 82140; 83605 ×2; 84484; 85025; 85610; 85730; 96361; 96365; 96375; 99285; A9270; J2560; J3360 ×2; J3411 ×2; J3490 ×2; J7030; J7050; J7121; Q9967; 76705; 76705-26; 80074; 82947; 83735; 84100; 87522; 87902; 97163-GP; 99223; 99232; 99233; 99239; C9113; J2060; J2405; J3475; J3480

== ENCOUNTER 2023-07-28 22:55 | Emergency (ER) | payer MEDICAID ==
[2023-07-29 01:23] LABS: BASOPHILS ABSOLUTE AUTO 0.08 K/uL (0.00-0.20); BASOPHILS PERCENT AUTO 1.1 % (0.0-1.0); EOSINOPHILS ABSOLUTE AUTO 0.04 K/uL (0.00-0.45); EOSINOPHILS PERCENT AUTO 0.6 % (0.0-6.0); HEMATOCRIT 43.6 % (42.0-52.0); HEMOGLOBIN 14.9 g/dL (14.0-18.0); IMMATURE GRAN ABSOLUTE AUTO 0.01 K/uL (0.00-0.05); IMMATURE GRAN PERCENT AUTO 0.1 % (0.0-0.4); MEAN CORPUSCULAR HEMOGLOBIN 31.6 pg (28.0-32.0); MEAN CORPUSCULAR HGB CONC 34.2 g/dL (32.0-36.0); MEAN CORPUSCULAR VOLUME 92.6 fL (83.0-99.0); MONOCYTES ABSOLUTE AUTO 0.21 K/uL (0.00-0.80); MONOCYTES PERCENT AUTO 2.9 % (0.0-8.0); NEUTROPHILS ABSOLUTE AUTO 1.97 K/uL (1.80-7.70); NEUTROPHILS PERCENT AUTO 27.3 % (41.0-71.0); PLATELET COUNT,PLT 70 K/uL (150-400); RED BLOOD CELL COUNT 4.71 M/uL (4.52-5.90); WHITE BLOOD CELL COUNT,WBC 7.21 K/uL (3.9-11.3)
[2023-07-29 01:50] LABS: A/G RATIO 0.7 (0.9-1.6); ALBUMIN 3.8 g/dL (3.4-5.0); BILIRUBIN TOTAL 1.2 mg/dL (0.2-1.0); CALCIUM 8.6 mg/dL (8.5-10.1); CARBON DIOXIDE,CO2 28.2 mmol/L (21.0-32.0); CREATININE 0.9 mg/dL (0.8-1.3); EST CRCL DRUG DOSING (CG) 138.27 mL/min; POTASSIUM,K 4.1 mmol/L (3.5-5.1); PROTEIN TOTAL,TP 9.2 g/dL (6.4-8.2)
== END 2023-07-29 02:50 | disposition home or self-care (01) ==
LOC: MW.ED 22:55
DX: F10.120 Alcohol abuse with intoxication, uncomplicated (principal); Z88.0 Allergy status to penicillin; Z75.8 Other problems related to medical facilities and other health care; Y90.9 Presence of alcohol in blood, level not specified
CPT/HCPCS: 36415; 80053; 85025; 99283; 99284

== ENCOUNTER 2023-07-29 16:44 | Observation (INO) | payer MEDICAID ==
[2023-07-29 19:21] LABS: BASOPHILS ABSOLUTE AUTO 0.09 K/uL (0.00-0.20); BASOPHILS PERCENT AUTO 1.4 % (0.0-1.0); EOSINOPHILS ABSOLUTE AUTO 0.05 K/uL (0.00-0.45); EOSINOPHILS PERCENT AUTO 0.8 % (0.0-6.0); HEMATOCRIT 42.2 % (42.0-52.0); HEMOGLOBIN 14.6 g/dL (14.0-18.0); IMMATURE GRAN ABSOLUTE AUTO 0.01 K/uL (0.00-0.05); IMMATURE GRAN PERCENT AUTO 0.2 % (0.0-0.4); LYMPHOCYTES ABSOLUTE AUTO 4.11 K/uL (1.00-4.80); LYMPHOCYTES PERCENT AUTO 63.9 % (24.0-44.0); MEAN CORPUSCULAR HEMOGLOBIN 31.7 pg (28.0-32.0); MEAN CORPUSCULAR HGB CONC 34.6 g/dL (32.0-36.0); MEAN CORPUSCULAR VOLUME 91.5 fL (83.0-99.0); MONOCYTES ABSOLUTE AUTO 0.39 K/uL (0.00-0.80); MONOCYTES PERCENT AUTO 6.1 % (0.0-8.0); NEUTROPHILS ABSOLUTE AUTO 1.78 K/uL (1.80-7.70); NEUTROPHILS PERCENT AUTO 27.6 % (41.0-71.0); PLATELET COUNT,PLT 76 K/uL (150-400); RED BLOOD CELL COUNT 4.61 M/uL (4.52-5.90); WHITE BLOOD CELL COUNT,WBC 6.43 K/uL (3.9-11.3)
[2023-07-29] MEDS: Ondansetron 4 MG/2 ML SDV IVPUSH ONE (19:39)
[2023-07-29] MEDS: Sodium Chloride 0.9% 1,000 ML IV ONE (19:40)
[2023-07-29 19:45] LABS: A/G RATIO 0.7 (0.9-1.6); ALBUMIN 3.8 g/dL (3.4-5.0); BILIRUBIN TOTAL 1.4 mg/dL (0.2-1.0); CALCIUM 8.7 mg/dL (8.5-10.1); CARBON DIOXIDE,CO2 25.6 mmol/L (21.0-32.0); CREATININE 0.9 mg/dL (0.8-1.3); EST CRCL DRUG DOSING (CG) 138.27 mL/min; PROTEIN TOTAL,TP 9.2 g/dL (6.4-8.2)
[2023-07-29] MEDS: Famotidine 20 MG/2 ML SDV IVPUSH ONE (20:55)
[2023-07-29] MEDS: Famotidine 20 MG Tab PO ONE (20:58)
[2023-07-30] MEDS: Diazepam 2 MG Tab PO ONE ×2 (00:13→06:41)
[2023-07-30] MEDS ORDERED: Sodium Chloride 0.9% 20 ML SDV IV PRN (06:19)
[2023-07-30] MEDS: PHENobarbitaL sodium 260 MG in Sodium Chloride 0.9% 100 ML IV ONE ×2 (06:31→06:44)
[2023-07-30] MEDS: Sodium Chloride 0.9% 2.5 ML Syringe FLUSH PRN (06:42)
[2023-07-30] MEDS: Sodium Chloride 0.9% 10 ML Syringe FLUSH PRN (06:42)
[2023-07-30] MEDS: Dextrose 5%-0.9% NaCl 1,000 ML IV SCH (06:44)
[2023-07-30] MEDS: PHENobarbital Sodium 130 MG/ML SDV IVPUSH ONE (06:44)
[2023-07-30] MEDS: Ondansetron 4 MG/2 ML SDV IVPUSH ONE (08:16)
[2023-07-30] MEDS ORDERED: PHENobarbital 32.4 MG Tab PO PRN ×2 (09:04)
[2023-07-30] MEDS ORDERED: Polyethylene Glycol 3350 Powder 17 GM Packet PO PRN (09:16)
[2023-07-30] MEDS ORDERED: Ondansetron 4 MG/2 ML SDV IVPUSH PRN (09:16)
[2023-07-30] MEDS: PHENobarbital 32.4 MG Tab PO PRN (09:20)
[2023-07-30 09:43] LABS: MAGNESIUM 1.7 mg/dL (1.8-2.4); PHOSPHORUS 3.1 mg/dL (2.6-4.7)
[2023-07-30] MEDS: Thiamine 200 MG/2 ML MDV IVPUSH SCH (10:16)
[2023-07-30] MEDS: Folic Acid 1 MG/0.2 ML UD Syringe IV SCH (10:16)
[2023-07-30] MEDS: Sodium Chloride 0.9% 1,000 ML IV ONE (11:46)
[2023-07-30] MEDS: Diazepam 5 MG Tab PO SCH (11:46)
== END 2023-07-30 14:30 | disposition left against medical advice (07) ==
LOC: MW.ED 16:44 → MW.MS 07-30 07:41
PROVIDERS: ADMIT Family Medicine; ATTEND Family Medicine
DX: F10.932 Alcohol use, unspecified with withdrawal with perceptual disturbance (principal); R56.9 Unspecified convulsions; F41.9 Anxiety disorder, unspecified; F32.A Depression, unspecified; Z72.0 Tobacco use; Z88.1 Allergy status to other antibiotic agents; Z79.899 Other long term (current) drug therapy; Y90.8 Blood alcohol level of 240 mg/100 ml or more
CPT/HCPCS: 36415; 80053; 80307; 83735; 84100; 85025; 96361; 96374; 96375; 96376; 99284; A9270; G0378; J2405; J2560; J3411; J3490; J7030; J7042

== ENCOUNTER 2023-08-07 15:03 | Emergency (ER) | payer MEDICAID ==
[2023-08-07 15:17] LABS: BASOPHILS ABSOLUTE AUTO 0.06 K/uL (0.00-0.20); BASOPHILS PERCENT AUTO 0.6 % (0.0-1.0); EOSINOPHILS ABSOLUTE AUTO 0.03 K/uL (0.00-0.45); EOSINOPHILS PERCENT AUTO 0.3 % (0.0-6.0); HEMATOCRIT 39.8 % (42.0-52.0); HEMOGLOBIN 13.8 g/dL (14.0-18.0); IMMATURE GRAN ABSOLUTE AUTO 0.02 K/uL (0.00-0.05); IMMATURE GRAN PERCENT AUTO 0.2 % (0.0-0.4); LYMPHOCYTES ABSOLUTE AUTO 3.21 K/uL (1.00-4.80); LYMPHOCYTES PERCENT AUTO 34.3 % (24.0-44.0); MEAN CORPUSCULAR HEMOGLOBIN 31.5 pg (28.0-32.0); MEAN CORPUSCULAR HGB CONC 34.7 g/dL (32.0-36.0); MEAN CORPUSCULAR VOLUME 90.9 fL (83.0-99.0); MEAN PLATELET VOLUME 10.5 fL (9.4-12.4); MONOCYTES ABSOLUTE AUTO 0.78 K/uL (0.00-0.80); MONOCYTES PERCENT AUTO 8.3 % (0.0-8.0); NEUTROPHILS ABSOLUTE AUTO 5.26 K/uL (1.80-7.70); NEUTROPHILS PERCENT AUTO 56.3 % (41.0-71.0); RED BLOOD CELL COUNT 4.38 M/uL (4.52-5.90); WHITE BLOOD CELL COUNT,WBC 9.36 K/uL (3.9-11.3)
[2023-08-07] MEDS: Sodium Chloride 0.9% 2.5 ML Syringe FLUSH PRN (15:25)
[2023-08-07] MEDS: Sodium Chloride 0.9% 1,000 ML IV STA (15:25)
[2023-08-07] MEDS: Sodium Chloride 0.9% 10 ML Syringe FLUSH PRN (15:25)
[2023-08-07 15:41] LABS: PLATELET COUNT,PLT 44 K/uL (150-400)
[2023-08-07 15:47] LABS: A/G RATIO 0.7 (0.9-1.6); ALBUMIN 3.6 g/dL (3.4-5.0); BILIRUBIN TOTAL 2.1 mg/dL (0.2-1.0); CALCIUM 8.3 mg/dL (8.5-10.1); CARBON DIOXIDE,CO2 24.1 mmol/L (21.0-32.0); CREATININE 0.8 mg/dL (0.8-1.3); EST CRCL DRUG DOSING (CG) 155.55 mL/min; POTASSIUM,K 3.3 mmol/L (3.5-5.1); PROTEIN TOTAL,TP 8.7 g/dL (6.4-8.2)
[2023-08-07] MEDS: Lidocaine 4% 1 each Patch TOP ONE (15:48)
[2023-08-07] MEDS: Iopamidol 755 MG/ML 500 ML Multipack Bottle IVPUSH STA (17:21)
== END 2023-08-07 18:53 | disposition home or self-care (01) ==
LOC: MW.ED 15:03
DX: J18.9 Pneumonia, unspecified organism (principal); F17.210 Nicotine dependence, cigarettes, uncomplicated; Z79.2 Long term (current) use of antibiotics; Z88.0 Allergy status to penicillin; Z75.8 Other problems related to medical facilities and other health care; Z79.899 Other long term (current) drug therapy
CPT/HCPCS: 36415; 71046; 71275; 80053; 84484; 85025; 85379; 93005; 99285; A9270; J3490; J7030; Q9967; 93010; 99284

== ENCOUNTER 2023-08-08 08:32 | Inpatient (IN) | payer MEDICAID ==
[2023-08-08 09:35] LABS: BASOPHILS ABSOLUTE AUTO 0.04 K/uL (0.00-0.20); EOSINOPHILS ABSOLUTE AUTO 0.11 K/uL (0.00-0.45); EOSINOPHILS PERCENT AUTO 2.7 % (0.0-6.0); HEMATOCRIT 35.6 % (42.0-52.0); HEMOGLOBIN 12.5 g/dL (14.0-18.0); IMMATURE GRAN ABSOLUTE AUTO 0.01 K/uL (0.00-0.05); IMMATURE GRAN PERCENT AUTO 0.2 % (0.0-0.4); LYMPHOCYTES PERCENT AUTO 44.4 % (24.0-44.0); MEAN CORPUSCULAR HEMOGLOBIN 31.9 pg (28.0-32.0); MEAN CORPUSCULAR HGB CONC 35.1 g/dL (32.0-36.0); MEAN CORPUSCULAR VOLUME 90.8 fL (83.0-99.0); MEAN PLATELET VOLUME 11.4 fL (9.4-12.4); MONOCYTES PERCENT AUTO 9.9 % (0.0-8.0); NEUTROPHILS ABSOLUTE AUTO 1.69 K/uL (1.80-7.70); NEUTROPHILS PERCENT AUTO 41.8 % (41.0-71.0); PLATELET COUNT,PLT 30 K/uL (150-400); RED BLOOD CELL COUNT 3.92 M/uL (4.52-5.90); WHITE BLOOD CELL COUNT,WBC 4.05 K/uL (3.9-11.3)
[2023-08-08 10:13] LABS: A/G RATIO 0.7 (0.9-1.6); ACETAMINOPHEN <2.0 ug/mL; ALANINE AMINOTRANSFERASE,ALT 48 IU/L (14-63); ALBUMIN 3.1 g/dL (3.4-5.0); ALKALINE PHOSPHATASE 66 U/L (46-116); ASPARTATE AMNIOTRANSFERASE,AST 77 IU/L (15-37); BILIRUBIN TOTAL 1.1 mg/dL (0.2-1.0); BLOOD UREA NITROGEN,BUN 4 mg/dL (7.0-18.0); CALCIUM 8.3 mg/dL (8.5-10.1); CARBON DIOXIDE,CO2 24.9 mmol/L (21.0-32.0); CHLORIDE,CL 101 mmol/L (98-107); CREATININE 0.7 mg/dL (0.8-1.3); EST CRCL DRUG DOSING (CG) 177.77 mL/min; GLUCOSE RANDOM 147 mg/dL (74-106); MAGNESIUM 1.4 mg/dL (1.8-2.4); PROTEIN TOTAL,TP 7.6 g/dL (6.4-8.2); SALICYLATE 1.1 mg/dL (0.0-20.0); SODIUM,NA 140 mmol/L (136-148); TSH ULTRASENSITIVE 2.72 uIU/mL (0.36-3.74)
[2023-08-08 10:21] LABS: ESTIMATED GFR 126 mL/min (>60); ETHANOL BLOOD MEDICAL 342 mg/dL
[2023-08-08] MEDS: Sodium Chloride 0.9% 1,000 ML IV ONE (10:51)
[2023-08-08] MEDS: LORazepam 2 MG/ML SDV IVPUSH ONE (10:51)
[2023-08-08 11:04] LABS: APPEARANCE,URINE CLEAR; GLUCOSE,URINE NEGATIVE (NEGATIVE); KETONES,URINE TRACE mg/dL (NEGATIVE); LEUKOCYTE ESTERASE,URINE NEGATIVE (NEGATIVE); NITRITE,URINE POSITIVE (NEGATIVE); OCCULT BLOOD,URINE NEGATIVE (NEGATIVE); PROTEIN,URINE TRACE mg/dL (NEGATIVE)
[2023-08-08 11:12] LABS: BILIRUBIN,URINE MODERATE (NEGATIVE)
[2023-08-08 11:14] LABS: AMPHETAMINES SCREEN, URINE NEGATIVE (CUTOFF=500); BARBITURATE SCREEN,URINE PRESUMPTIVE POSITIVE (CUTOFF=200); BENZODIAZEPINES SCREEN,URINE PRESUMPTIVE POSITIVE (CUTOFF=150); BUPRENORPHINE SCREEN,URINE NEGATIVE (CUTOFF=10); METHADONE SCREEN, URINE NEGATIVE (CUTOFF=200); METHAMPHETAMINES SCREEN, URINE NEGATIVE (CUTOFF=500); OXYCODONE SCREEN,URINE NEGATIVE (CUT0FF=100); PCP SCREEN,URINE NEGATIVE (CUTOFF=25); THC SCREEN,URINE 20 NG/ML NEGATIVE (CUTOFF=50)
[2023-08-08 11:17] LABS: COLOR,URINE AMBER
[2023-08-08 11:18] LABS: BACTERIA,URINE FEW (NEGATIVE); EPITHELIAL CELLS,URINE RARE (NONE-FEW); MUCUS,URINE MODERATE (NONE-MOD); RBC,URINE NONE SEEN (0-2/HPF); WBC,URINE 0-1 (0-5/HPF)
[2023-08-08] MEDS: Potassium Chloride 20 MEQ Tab.ER PO ONE ×2 (11:58→15:03)
[2023-08-08] MEDS ORDERED: Acetaminophen 325 MG Tab PO PRN (12:04)
[2023-08-08] MEDS ORDERED: Acetaminophen 650 MG Supp RECTAL PRN (12:04)
[2023-08-08] MEDS ORDERED: Polyethylene Glycol 3350 Powder 17 GM Packet PO PRN (12:04)
[2023-08-08] MEDS ORDERED: Melatonin 3 MG Tab PO PRN (12:04)
[2023-08-08] MEDS ORDERED: Heparin Sodium 5,000 Units/ML Vial SUBCUT SCH (12:15)
[2023-08-08] MEDS ORDERED: Thiamine 100 MG in Sodium Chloride 0.9% 100 ML IV SCH (12:15)
[2023-08-08] MEDS ORDERED: Pantoprazole 40 MG in Sodium Chloride 0.9% 10 ML IVPUSH SCH (12:15)
[2023-08-08] MEDS ORDERED: PHENobarbital Sodium 130 MG/ML SDV IVPUSH PRN (12:58)
[2023-08-08] MEDS ORDERED: PHENobarbital 32.4 MG Tab PO PRN ×2 (13:00→13:01)
[2023-08-08] MEDS: PHENOBARBITAL SODIUM IV ONE (14:51)
[2023-08-08] MEDS: SODIUM CHLORIDE 0.9% IV ONE (14:51)
[2023-08-08] MEDS: Sodium Chloride 0.9% 1,000 ML IV SCH (14:59)
[2023-08-08] MEDS: Folic Acid 1 MG/0.2 ML UD Syringe IV SCH (15:01)
[2023-08-08] MEDS: Thiamine 200 MG/2 ML MDV IVPUSH SCH (15:02)
[2023-08-08] MEDS: Pantoprazole 40 MG in Sodium Chloride 0.9% 10 ML IVPUSH SCH (15:02)
[2023-08-08] MEDS: QUEtiapine 25 MG Tab PO SCH (15:02)
[2023-08-08] MEDS: Diazepam 5 MG Tab PO SCH (15:03)
[2023-08-08] MEDS: Magnesium Sulfate/Water 2 GM in Premix Bag 1 BAG IV ONE (15:03)
[2023-08-08] MEDS: Ondansetron 4 MG/2 ML SDV IVPUSH PRN (15:04)
[2023-08-08] MEDS: PHENobarbitaL sodium 260 MG in Sodium Chloride 0.9% 100 ML IV ONE (15:30)
[2023-08-09] MEDS: PHENobarbital 32.4 MG Tab PO PRN (03:50)
[2023-08-09 06:59] LABS: BASOPHILS ABSOLUTE AUTO 0.02 K/uL (0.00-0.20); BASOPHILS PERCENT AUTO 0.6 % (0.0-1.0); EOSINOPHILS ABSOLUTE AUTO 0.09 K/uL (0.00-0.45); EOSINOPHILS PERCENT AUTO 2.9 % (0.0-6.0); HEMATOCRIT 33.3 % (42.0-52.0); HEMOGLOBIN 11.6 g/dL (14.0-18.0); LYMPHOCYTES ABSOLUTE AUTO 1.14 K/uL (1.00-4.80); LYMPHOCYTES PERCENT AUTO 36.7 % (24.0-44.0); MEAN CORPUSCULAR HEMOGLOBIN 31.5 pg (28.0-32.0); MEAN CORPUSCULAR HGB CONC 34.8 g/dL (32.0-36.0); MEAN CORPUSCULAR VOLUME 90.5 fL (83.0-99.0); MEAN PLATELET VOLUME 11.7 fL (9.4-12.4); MONOCYTES ABSOLUTE AUTO 0.26 K/uL (0.00-0.80); MONOCYTES PERCENT AUTO 8.4 % (0.0-8.0); NEUTROPHILS PERCENT AUTO 51.4 % (41.0-71.0); RED BLOOD CELL COUNT 3.68 M/uL (4.52-5.90); WHITE BLOOD CELL COUNT,WBC 3.11 K/uL (3.9-11.3)
[2023-08-09 07:19] LABS: A/G RATIO 0.7 (0.9-1.6); ALBUMIN 2.6 g/dL (3.4-5.0); BILIRUBIN TOTAL 2.6 mg/dL (0.2-1.0); CALCIUM 7.9 mg/dL (8.5-10.1); CARBON DIOXIDE,CO2 24.7 mmol/L (21.0-32.0); CREATININE 0.7 mg/dL (0.8-1.3); EST CRCL DRUG DOSING (CG) 177.77 mL/min; MAGNESIUM 1.4 mg/dL (1.8-2.4); PHOSPHORUS 2.6 mg/dL (2.6-4.7); POTASSIUM,K 3.7 mmol/L (3.5-5.1); PROTEIN TOTAL,TP 6.5 g/dL (6.4-8.2)
[2023-08-09 09:00] LABS: PLATELET COUNT,PLT 52 K/uL (150-400)
[2023-08-09] MEDS: Magnesium Sulfate/Water 4 GM in Premix Bag 1 BAG IV ONE (12:15)
[2023-08-09] MEDS: Cyanocobalamin (Vitamin B12) 500 MCG Tab PO SCH (15:18)
[2023-08-09] MEDS: Cholecalciferol (Vitamin D3) 25 MCG Tab PO SCH (15:18)
[2023-08-09] MEDS: Vitamin B6-pyridOXINE 50 MG Tab PO SCH (16:20)
[2023-08-09] MEDS: QUEtiapine 25 MG Tab PO SCH (20:23)
[2023-08-09] MEDS: cloNIDine 0.1 MG Tab PO SCH (20:23)
[2023-08-09] MEDS: Topiramate 50 MG Tab PO SCH (20:23)
[2023-08-10 05:46] LABS: BASOPHILS ABSOLUTE AUTO 0.02 K/uL (0.00-0.20); BASOPHILS PERCENT AUTO 0.6 % (0.0-1.0); EOSINOPHILS ABSOLUTE AUTO 0.13 K/uL (0.00-0.45); EOSINOPHILS PERCENT AUTO 4.2 % (0.0-6.0); HEMATOCRIT 33.9 % (42.0-52.0); HEMOGLOBIN 11.7 g/dL (14.0-18.0); LYMPHOCYTES ABSOLUTE AUTO 1.38 K/uL (1.00-4.80); LYMPHOCYTES PERCENT AUTO 44.5 % (24.0-44.0); MEAN CORPUSCULAR HEMOGLOBIN 31.2 pg (28.0-32.0); MEAN CORPUSCULAR HGB CONC 34.5 g/dL (32.0-36.0); MEAN CORPUSCULAR VOLUME 90.4 fL (83.0-99.0); MEAN PLATELET VOLUME 12.5 fL (9.4-12.4); MONOCYTES ABSOLUTE AUTO 0.24 K/uL (0.00-0.80); MONOCYTES PERCENT AUTO 7.7 % (0.0-8.0); NEUTROPHILS ABSOLUTE AUTO 1.33 K/uL (1.80-7.70); RED BLOOD CELL COUNT 3.75 M/uL (4.52-5.90)
[2023-08-10 06:09] LABS: A/G RATIO 0.7 (0.9-1.6); ALBUMIN 2.8 g/dL (3.4-5.0); BILIRUBIN TOTAL 2.1 mg/dL (0.2-1.0); CALCIUM 8.4 mg/dL (8.5-10.1); CARBON DIOXIDE,CO2 26.6 mmol/L (21.0-32.0); CREATININE 0.8 mg/dL (0.8-1.3); EST CRCL DRUG DOSING (CG) 155.55 mL/min; MAGNESIUM 1.7 mg/dL (1.8-2.4); PHOSPHORUS 3.6 mg/dL (2.6-4.7); POTASSIUM,K 3.4 mmol/L (3.5-5.1); PROTEIN TOTAL,TP 7.1 g/dL (6.4-8.2)
[2023-08-10 06:37] LABS: PLATELET COUNT,PLT 24 K/uL (150-400)
[2023-08-10] MEDS: Potassium Chloride 20 MEQ Tab.ER PO ONE (08:49)
[2023-08-10] MEDS: Magnesium Sulfate/Water 2 GM in Premix Bag 1 BAG IV ONE (08:49)
[2023-08-10] MEDS: Silver Sulfadiazine 1% Crm 50 GM Tube TOP SCH (08:54)
== END 2023-08-10 14:40 | disposition home or self-care (01) | DRG 897 ==
LOC: MW.ED 08:32 → MW.MS 11:39
PROVIDERS: ADMIT Family Medicine; ATTEND Family Medicine
DX: F10.10 Alcohol abuse, uncomplicated (principal); F41.9 Anxiety disorder, unspecified; Z88.0 Allergy status to penicillin; F32.A Depression, unspecified; Z75.8 Other problems related to medical facilities and other health care; T23.052A Burn of unspecified degree of left palm, initial encounter; F17.210 Nicotine dependence, cigarettes, uncomplicated; Z88.1 Allergy status to other antibiotic agents; Z79.899 Other long term (current) drug therapy; Y90.8 Blood alcohol level of 240 mg/100 ml or more; X58.XXXA Exposure to other specified factors, initial encounter
CPT/HCPCS: 36415; 80053; 80143; 80179; 80305; 80307; 81001; 83735; 84443; 85025; 96361; 96374; 99285; J2060; J7030; 84100; 93010; A9270-GY; C9113; J2405; J2560; J3411; J3475; J3490

== ENCOUNTER 2023-08-22 16:08 | Emergency (ER) | payer MEDICAID | END 2023-08-22 18:43 | disposition home or self-care (01) | LOC: MW.ED 16:08 | DX: S82.892A Other fracture of left lower leg, initial encounter for closed fracture (principal); S92.902A Unspecified fracture of left foot, initial encounter for closed fracture; Z88.1 Allergy status to other antibiotic agents; Z79.899 Other long term (current) drug therapy; V00.131A Fall from skateboard, initial encounter | CPT/HCPCS: 73552-26-LT; 73552-LT; 73552-RT; 73590-26-LT; 73590-26-RT; 73590-LT; 73590-RT; 73610-26-LT; 73610-LT; 73610-RT; 99283 ==

== ENCOUNTER 2023-08-23 00:13 | Emergency (ER) | payer MEDICAID ==
[2023-08-23] MEDS: Acetaminophen/HYDROcodone 325-5 MG Tab PO ONE (01:58)
== END 2023-08-23 02:09 | disposition home or self-care (01) ==
LOC: MW.ED 00:13
DX: S92.902A Unspecified fracture of left foot, initial encounter for closed fracture (principal); Z88.0 Allergy status to penicillin; Z79.899 Other long term (current) drug therapy; Z75.8 Other problems related to medical facilities and other health care; X58.XXXA Exposure to other specified factors, initial encounter; Y93.89 Activity, other specified
CPT/HCPCS: 99283

== ENCOUNTER 2023-08-27 16:19 | Emergency (ER) | payer MEDICAID | END 2023-08-27 17:56 | disposition home or self-care (01) | LOC: MW.ED 16:19 | DX: M79.672 Pain in left foot (principal); S92.902D Unspecified fracture of left foot, subsequent encounter for fracture with routine healing; F17.210 Nicotine dependence, cigarettes, uncomplicated; Z88.0 Allergy status to penicillin; Z79.899 Other long term (current) drug therapy; Z86.16 Personal history of COVID-19; X58.XXXD Exposure to other specified factors, subsequent encounter | CPT/HCPCS: 29515; 99283; 99283-25 ==

== ENCOUNTER 2023-08-28 00:17 | Emergency (ER) | payer MEDICAID ==
[2023-08-28] MEDS: Sodium Chloride 0.9% 10 ML Syringe FLUSH PRN (00:55)
[2023-08-28] MEDS: Sodium Chloride 0.9% 2.5 ML Syringe FLUSH PRN (00:55)
[2023-08-28 00:59] LABS: BASOPHILS ABSOLUTE AUTO 0.11 K/uL (0.00-0.20); BASOPHILS PERCENT AUTO 1.5 % (0.0-1.0); EOSINOPHILS ABSOLUTE AUTO 0.17 K/uL (0.00-0.45); EOSINOPHILS PERCENT AUTO 2.3 % (0.0-6.0); HEMOGLOBIN 13.7 g/dL (14.0-18.0); IMMATURE GRAN ABSOLUTE AUTO 0.01 K/uL (0.00-0.05); IMMATURE GRAN PERCENT AUTO 0.1 % (0.0-0.4); LYMPHOCYTES ABSOLUTE AUTO 3.98 K/uL (1.00-4.80); LYMPHOCYTES PERCENT AUTO 54.2 % (24.0-44.0); MEAN CORPUSCULAR HEMOGLOBIN 31.1 pg (28.0-32.0); MEAN CORPUSCULAR HGB CONC 34.3 g/dL (32.0-36.0); MEAN CORPUSCULAR VOLUME 90.9 fL (83.0-99.0); MEAN PLATELET VOLUME 9.8 fL (9.4-12.4); MONOCYTES ABSOLUTE AUTO 0.37 K/uL (0.00-0.80); NEUTROPHILS PERCENT AUTO 36.9 % (41.0-71.0); PLATELET COUNT,PLT 96 K/uL (150-400); WHITE BLOOD CELL COUNT,WBC 7.34 K/uL (3.9-11.3)
[2023-08-28 01:27] LABS: A/G RATIO 0.7 (0.9-1.6); ALANINE AMINOTRANSFERASE,ALT 50 IU/L (14-63); ALBUMIN 3.4 g/dL (3.4-5.0); ALKALINE PHOSPHATASE 92 U/L (46-116); ASPARTATE AMNIOTRANSFERASE,AST 61 IU/L (15-37); BILIRUBIN TOTAL 0.6 mg/dL (0.2-1.0); BLOOD UREA NITROGEN,BUN 11 mg/dL (7.0-18.0); CALCIUM 8.7 mg/dL (8.5-10.1); CARBON DIOXIDE,CO2 27.2 mmol/L (21.0-32.0); CHLORIDE,CL 102 mmol/L (98-107); GLUCOSE RANDOM 105 mg/dL (74-106); POTASSIUM,K 4.4 mmol/L (3.5-5.1); PROTEIN TOTAL,TP 8.5 g/dL (6.4-8.2); SODIUM,NA 142 mmol/L (136-148)
[2023-08-28 01:34] LABS: ESTIMATED GFR 103 mL/min (>60); ETHANOL BLOOD MEDICAL 368 mg/dL
[2023-08-28] MEDS: Acetaminophen 325 MG Tab PO ONE (02:21)
[2023-08-28] MEDS: Ibuprofen 400 MG Tab PO ONE (02:22)
== END 2023-08-28 02:34 ==
LOC: MW.ED 00:17
DX: F10.920 Alcohol use, unspecified with intoxication, uncomplicated (principal); Z86.16 Personal history of COVID-19; Z79.899 Other long term (current) drug therapy; Z88.0 Allergy status to penicillin; Z75.8 Other problems related to medical facilities and other health care
CPT/HCPCS: 36415; 70450; 80053; 80307; 85025; 99284; A9270; J3490; 99283

== ENCOUNTER 2023-09-29 09:09 | Inpatient (IN) | payer MEDICAID ==
[2023-09-29] MEDS ORDERED: Sodium Chloride 0.9% 2.5 ML Syringe FLUSH PRN (09:29)
[2023-09-29] MEDS ORDERED: Sodium Chloride 0.9% 10 ML Syringe FLUSH PRN (09:29)
[2023-09-29] MEDS: Lactated Ringers 1,000 ML IV ONE (09:44)
[2023-09-29] MEDS: Ondansetron 4 MG/2 ML SDV IVPUSH ONE (09:47)
[2023-09-29 09:50] LABS: BASOPHILS ABSOLUTE AUTO 0.05 K/uL (0.00-0.20); BASOPHILS PERCENT AUTO 1.1 % (0.0-1.0); EOSINOPHILS ABSOLUTE AUTO 0.13 K/uL (0.00-0.45); EOSINOPHILS PERCENT AUTO 2.9 % (0.0-6.0); HEMATOCRIT 37.8 % (42.0-52.0); HEMOGLOBIN 12.9 g/dL (14.0-18.0); LYMPHOCYTES ABSOLUTE AUTO 2.22 K/uL (1.00-4.80); LYMPHOCYTES PERCENT AUTO 48.9 % (24.0-44.0); MEAN CORPUSCULAR HEMOGLOBIN 30.9 pg (28.0-32.0); MEAN CORPUSCULAR HGB CONC 34.1 g/dL (32.0-36.0); MEAN CORPUSCULAR VOLUME 90.4 fL (83.0-99.0); MEAN PLATELET VOLUME 10.9 fL (9.4-12.4); MONOCYTES ABSOLUTE AUTO 0.52 K/uL (0.00-0.80); MONOCYTES PERCENT AUTO 11.5 % (0.0-8.0); NEUTROPHILS ABSOLUTE AUTO 1.62 K/uL (1.80-7.70); NEUTROPHILS PERCENT AUTO 35.6 % (41.0-71.0); PLATELET COUNT,PLT 49 K/uL (150-400); RED BLOOD CELL COUNT 4.18 M/uL (4.52-5.90); WHITE BLOOD CELL COUNT,WBC 4.54 K/uL (3.9-11.3)
[2023-09-29] MEDS: PHENobarbitaL sodium 130 MG in Sodium Chloride 0.9% 100 ML IV ONE (10:00)
[2023-09-29 10:24] LABS: A/G RATIO 0.8 (0.9-1.6); ACETAMINOPHEN <2.0 ug/mL; ALANINE AMINOTRANSFERASE,ALT 140 IU/L (14-63); ALBUMIN 3.6 g/dL (3.4-5.0); ALKALINE PHOSPHATASE 87 U/L (46-116); ASPARTATE AMNIOTRANSFERASE,AST 213 IU/L (15-37); BILIRUBIN TOTAL 2.1 mg/dL (0.2-1.0); BLOOD UREA NITROGEN,BUN 6 mg/dL (7.0-18.0); CALCIUM 8.5 mg/dL (8.5-10.1); CARBON DIOXIDE,CO2 24.8 mmol/L (21.0-32.0); CHLORIDE,CL 99 mmol/L (98-107); CREATININE 0.8 mg/dL (0.8-1.3); EST CRCL DRUG DOSING (CG) 155.55 mL/min; ESTIMATED GFR 121 mL/min (>60); ETHANOL BLOOD MEDICAL 34 mg/dL; GLUCOSE RANDOM 86 mg/dL (74-106); LIPASE 34 U/L (16-77); POTASSIUM,K 3.3 mmol/L (3.5-5.1); PROTEIN TOTAL,TP 8.4 g/dL (6.4-8.2); SALICYLATE 3.2 mg/dL (0.0-20.0); SODIUM,NA 138 mmol/L (136-148); TSH ULTRASENSITIVE 3.07 uIU/mL (0.36-3.74)
[2023-09-29] MEDS: Magnesium Sulfate/Water 4 GM in Premix Bag 1 BAG IV ONE ×2 (10:48→11:44)
[2023-09-29] MEDS ORDERED: PHENobarbital Sodium 130 MG/ML SDV IVPUSH PRN (11:06)
[2023-09-29 11:12] LABS: AMPHETAMINES SCREEN, URINE NEGATIVE (CUTOFF=500); BARBITURATE SCREEN,URINE PRESUMPTIVE POSITIVE (CUTOFF=200); BENZODIAZEPINES SCREEN,URINE PRESUMPTIVE POSITIVE (CUTOFF=150); BUPRENORPHINE SCREEN,URINE NEGATIVE (CUTOFF=10); METHADONE SCREEN, URINE NEGATIVE (CUTOFF=200); METHAMPHETAMINES SCREEN, URINE NEGATIVE (CUTOFF=500); OXYCODONE SCREEN,URINE NEGATIVE (CUT0FF=100); PCP SCREEN,URINE NEGATIVE (CUTOFF=25); THC SCREEN,URINE 20 NG/ML NEGATIVE (CUTOFF=50)
[2023-09-29] MEDS: PHENobarbital Sodium 130 MG/ML SDV IVPUSH PRN (11:35)
[2023-09-29] MEDS ORDERED: PHENobarbitaL sodium 260 MG in Sodium Chloride 0.9% 100 ML IV PRN (12:11)
[2023-09-29] MEDS ORDERED: Sennosides/Docusate Sodium 50-8.6 MG Tab PO PRN (12:11)
[2023-09-29] MEDS ORDERED: Polyethylene Glycol 3350 Powder 17 GM Packet PO PRN (12:11)
[2023-09-29] MEDS ORDERED: Acetaminophen 325 MG Tab PO PRN (12:11)
[2023-09-29] MEDS ORDERED: Nicotine 14 MG/24 Hr Patch TRDERM PRN (12:11)
[2023-09-29] MEDS ORDERED: PHENobarbital 32.4 MG Tab PO PRN (12:11)
[2023-09-29] MEDS ORDERED: Ketorolac 30 MG/ML SDV IVPUSH PRN (12:11)
[2023-09-29] MEDS ORDERED: Enoxaparin 40 MG/0.4 ML Syringe SUBCUT SCH (12:15)
[2023-09-29] MEDS ORDERED: Thiamine 100 MG in Sodium Chloride 0.9% 100 ML IV SCH (12:30)
[2023-09-29] MEDS: Pantoprazole 40 MG in Sodium Chloride 0.9% 10 ML IVPUSH SCH (12:46)
[2023-09-29] MEDS: Thiamine 200 MG/2 ML MDV IV SCH (12:49)
[2023-09-29] MEDS: Folic Acid 1 MG/0.2 ML UD Syringe IV SCH (12:49)
[2023-09-29] MEDS: Ondansetron 4 MG Tab.DIS PO PRN (12:49)
[2023-09-29] MEDS: PHENobarbital 32.4 MG Tab PO PRN ×2 (12:50→20:36)
[2023-09-29] MEDS: Promethazine 25 MG/ML SDV IM PRN (13:00)
[2023-09-29] MEDS: Sodium Chloride 0.9% 1,000 ML IV SCH (13:03)
[2023-09-29] MEDS: Potassium Chloride 20 MEQ Tab.ER PO ONE (13:41)
[2023-09-29] MEDS: QUEtiapine 25 MG Tab PO ONE (16:34)
[2023-09-30] MEDS ORDERED: LORazepam 1 MG Tab PO PRN (05:27)
[2023-09-30 05:47] LABS: BASOPHILS ABSOLUTE AUTO 0.03 K/uL (0.00-0.20); BASOPHILS PERCENT AUTO 0.9 % (0.0-1.0); EOSINOPHILS ABSOLUTE AUTO 0.11 K/uL (0.00-0.45); EOSINOPHILS PERCENT AUTO 3.4 % (0.0-6.0); HEMATOCRIT 34.9 % (42.0-52.0); HEMOGLOBIN 11.8 g/dL (14.0-18.0); LYMPHOCYTES ABSOLUTE AUTO 1.21 K/uL (1.00-4.80); MEAN CORPUSCULAR HEMOGLOBIN 30.4 pg (28.0-32.0); MEAN CORPUSCULAR HGB CONC 33.8 g/dL (32.0-36.0); MEAN CORPUSCULAR VOLUME 89.9 fL (83.0-99.0); MONOCYTES ABSOLUTE AUTO 0.37 K/uL (0.00-0.80); MONOCYTES PERCENT AUTO 11.3 % (0.0-8.0); NEUTROPHILS ABSOLUTE AUTO 1.55 K/uL (1.80-7.70); NEUTROPHILS PERCENT AUTO 47.4 % (41.0-71.0); PLATELET COUNT,PLT 40 K/uL (150-400); RED BLOOD CELL COUNT 3.88 M/uL (4.52-5.90); WHITE BLOOD CELL COUNT,WBC 3.27 K/uL (3.9-11.3)
[2023-09-30] MEDS: LORazepam 1 MG Tab PO SCH ×2 (05:50→06:16)
[2023-09-30 06:17] LABS: A/G RATIO 0.7 (0.9-1.6); ALBUMIN 2.9 g/dL (3.4-5.0); BILIRUBIN TOTAL 2.2 mg/dL (0.2-1.0); CALCIUM 8.4 mg/dL (8.5-10.1); CARBON DIOXIDE,CO2 24.3 mmol/L (21.0-32.0); CREATININE 0.7 mg/dL (0.8-1.3); EST CRCL DRUG DOSING (CG) 177.77 mL/min; MAGNESIUM 1.5 mg/dL (1.8-2.4); PHOSPHORUS 2.4 mg/dL (2.6-4.7); POTASSIUM,K 4.3 mmol/L (3.5-5.1); PROTEIN TOTAL,TP 7.2 g/dL (6.4-8.2)
[2023-09-30] MEDS: LORazepam 1 MG Tab PO PRN (06:42)
[2023-09-30] MEDS ORDERED: QUEtiapine 25 MG Tab PO SCH ×2 (09:00→21:00)
[2023-09-30] MEDS: Magnesium Sulfate/Water 2 GM in Premix Bag 1 BAG IV ONE (10:23)
== END 2023-09-30 16:45 | disposition left against medical advice (07) | DRG 894 ==
LOC: MW.ED 09:09 → MW.ICU 11:22
PROVIDERS: ADMIT Internal Medicine; ATTEND Internal Medicine
PROC: HZ2ZZZZ Detoxification Services for Substance Abuse Treatment (ICD-10-PCS; principal; 2023-09-29)
DX: F10.231 Alcohol dependence with withdrawal delirium (principal); F10.232 Alcohol dependence with withdrawal with perceptual disturbance; E83.42 Hypomagnesemia; F41.9 Anxiety disorder, unspecified; F32.A Depression, unspecified; D69.6 Thrombocytopenia, unspecified; E87.6 Hypokalemia; X58.XXXD Exposure to other specified factors, subsequent encounter; Z88.0 Allergy status to penicillin; S92.902D Unspecified fracture of left foot, subsequent encounter for fracture with routine healing; S92.901D Unspecified fracture of right foot, subsequent encounter for fracture with routine healing; Z79.899 Other long term (current) drug therapy; Z86.16 Personal history of COVID-19; Z98.890 Other specified postprocedural states
CPT/HCPCS: 36415; 80053; 80143; 80179; 80305-QW; 80307; 83690; 83735; 84100; 84443; 84484; 85025; 93005; 93010; 96365; 96368; 96375; 99223; 99238; 99285-25; 99291; A9270-GY; C9113; J2405; J2550; J2560; J3360; J3411; J3475; J3490; J7030; J7120

== ENCOUNTER 2023-10-17 13:31 | Emergency (ER) | payer MEDICAID ==
[~2023-10-17 13:31] MED LIST: EPINEPHrine 1 MG/1 ML Amp IVPUSH ONE
[2023-10-17] MEDS: EPINEPHrine 1:10,000 1 MG/10 ML Syringe IVPUSH ONE ×5 (13:31→13:49)
[2023-10-17] MEDS ORDERED: Tranexamic Acid 1,000 MG/10 ML Vial ONE ×2 (13:35→13:38)
[2023-10-17] MEDS ORDERED: Tranexamic Acid 1,000 MG in Sodium Chloride 0.9% 100 ML IV ONE ×4 (13:38→17:54)
[2023-10-17] MEDS: Tranexamic Acid 1,000 MG/10 ML Vial IV ONE (13:38)
[2023-10-17] MEDS ORDERED: EPINEPHrine 1 MG/1 ML Amp IVPUSH ONE (13:42)
[2023-10-17] MEDS: Sodium Bicarbonate 8.4% 50 MEQ/50 ML Syringe IVPUSH ONE (13:43)
== END 2023-10-17 16:16 | disposition expired ==
LOC: MW.ED 13:31
DX: S71.131A Puncture wound without foreign body, right thigh, initial encounter (principal); I46.9 Cardiac arrest, cause unspecified; Z86.16 Personal history of COVID-19; W34.00XA Accidental discharge from unspecified firearms or gun, initial encounter
CPT/HCPCS: 31500; 36415; 36680; 86920; 92950; 96374; 99291; G0390; J0171; 32551; 99285; J3490; P9016